=== PATIENT | female | born 1960 | race African-American/Black ===

== ENCOUNTER 2016-07-12 10:56 | Emergency (ER) | payer OTHER ==
[~2016-07-12] VITALS: Ht 162.6 cm; Wt 67.6 kg
[2016-07-12 11:08] VITALS: BP 138/87
[2016-07-12] MEDS ORDERED: NAPROSYN500 MG PO (11:40)
[2016-07-12] MEDS ORDERED: TIZANIDINE HCL4 MG PO (11:40)
== END 2016-07-12 11:47 | disposition home or self-care (01) ==
LOC: ER 10:56
DX: S40.011A Contusion of right shoulder, initial encounter (principal); S30.0XXA Contusion of lower back and pelvis, initial encounter; S80.01XA Contusion of right knee, initial encounter; F17.210 Nicotine dependence, cigarettes, uncomplicated; V43.52XA Car driver injured in collision with other type car in traffic accident, initial encounter; Y93.I9 Activity, other involving external motion; Y92.89 Other specified places as the place of occurrence of the external cause; Y99.8 Other external cause status